=== PATIENT | male | born 1975 | race American Indian/Alaskan Native ===

== ENCOUNTER 2017-11-21 13:47 | Emergency (ER) | payer SELFPAY ==
[2017-11-21 14:22] VITALS: BP 130/90
[2017-11-21] MEDS ORDERED: DECADRON IV ONE (15:24)
[2017-11-21] MEDS ORDERED: NORCO 7.5/325 PO ONE (15:24)
[2017-11-21] MEDS ORDERED: TORADOL IM ONE (15:24)
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
== END 2017-11-21 16:01 | disposition home or self-care (01) ==
LOC: ED 13:47
DX: M79.672 Pain in left foot (principal); G89.29 Other chronic pain
CPT/HCPCS: 96372; 96374; 99282; J1100; J1885

== ENCOUNTER 2019-07-24 19:55 | Emergency (ER) | payer SELFPAY ==
[2019-07-24 20:09] VITALS: BP 141/88
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
== END 2019-07-24 20:25 | disposition home or self-care (01) ==
LOC: ED 19:55
DX: K02.9 Dental caries, unspecified (principal); K05.10 Chronic gingivitis, plaque induced; F12.10 Cannabis abuse, uncomplicated; Z87.891 Personal history of nicotine dependence
CPT/HCPCS: 99282